=== PATIENT | female | born 1995 | race American Indian/Alaskan Native ===

== ENCOUNTER 2017-08-04 23:51 | Emergency (ER) | payer OTHER ==
[~2017-08-04] VITALS: Ht 154.9 cm; Wt 56.7 kg
[2017-08-05 00:04] VITALS: Ht 154.9 cm; Wt 56.7 kg
[2017-08-05 00:39] LABS: PLATELET COUNT 294 x10^3mcL (130-400)
[2017-08-05 00:41] LABS: BASOPHIL % 0 % (0-2); RED CELL DISTRIBUTION WIDTH 17.9 % (11.5-14.5)
[2017-08-05 00:53] LABS: CALCIUM 8.8 mg/dL (8.5-10.1); CARBON DIOXIDE 23.7 mmol/L (21-32); CHLORIDE SERUM 104 mmol/L (98-107); CREATININE SERUM 0.9 mg/dL (0.6-1.0); GFR1 > 60 mL/min; GLUCOSE SERUM 89 mg/dL (74-106); POTASSIUM SERUM 3.8 mmol/L (3.5-5.1); SODIUM SERUM 140 mmol/L (136-145)
[2017-08-05 00:54] LABS: AMPHETAMINE QUAL UR NONE DETECTED (NEG <=1000)
[2017-08-05 00:57] LABS: ALBUMIN 3.6 g/dL (3.4-5.0); ALKALINE PHOSPHATASE 98 U/L (46-116); ALT/SGPT 18 U/L (14-59); AMYLASE 45 U/L (25-115); AST/SGOT 20 U/L (15-37); BILIRUBIN TOTAL 0.2 mg/dL (0.20-1.00); LIPASE 119 IU/L (73-393); TOTAL PROTEIN, SERUM 7.1 g/dL (6.4-8.2)
[2017-08-05 02:55] LABS: AMPHETAMINE QUAL UR NONE DETECTED (NEG <=1000)
[2017-08-05 03:39] VITALS: BP 106/61
== END 2017-08-05 03:39 | disposition home or self-care (01) ==
LOC: ED 23:51
PROVIDERS: Emergency Medicine
DX: R41.82 Altered mental status, unspecified (principal); F10.129 Alcohol abuse with intoxication, unspecified
CPT/HCPCS: 83880; G0480; J2405